=== PATIENT | male | born 1970 | race Caucasian/White ===

== ENCOUNTER 2019-08-07 05:28 | Emergency (ER) | payer SELFPAY ==
--- NOTE | ~2019-08-07 | CT_ITS ---
EXAMINATION: CT abdomen pelvis wo con DATE: 08/07/2019 05:53 INDICATION: Left flank pain, nausea and hematuria. History of kidney stones. TECHNIQUE: Computed tomography (CT) of the abdomen and pelvis was performed without intravenous contr ast. The dose-length product was 192.05 mGy-cm. Automated exposure control and iterative reconstructi on technique were employed. COMPARISON: None. FINDINGS: Lung bases are unremarkable. Heart size normal. No pleural effusion. Small pericardial effu girish. The liver, spleen, pancreas, adrenal glands and right kidney are unremarkable. There is a 4 mm left U PJ stone with mild hydronephrosis. Nonobstructive bowel gas pattern. No abnormal pelvic masses or flu id collections. No free air. No lymphadenopathy. No significant vascular abnormality. There is lumbar spondylosis at L5-S1. No acute osseous abnormality. IMPRESSION: 1. 4 mm left UPJ stone with mild hydronephrosis. 2: Small pericardial effusion. Reviewed, dictated and finalized at location B. ER/[facility]
[2019-08-07 05:32] VITALS: BP 105/65; PULSE 60; RESP 20; TEMP 36.9; O2SAT 100
--- NOTE | 2019-08-07 05:40 | ED.ABDPAIN ---
HPI - Abdominal Pain General Chief Complaint: Abdominal Pain <Ramy Haq - Last Filed: 08/07/19 05:41> Stated Complaint: kidney stone <Ramy Haq - Last Filed: 08/07/19 05:41> Time Seen by Provider: 08/07/19 05:38 <Ramy Haq - Last Filed: 08/07/19 05:41> Source: RN notes reviewed <Ramy Haq - Last Filed: 08/07/19 05:41> History of Present Illness HPI narrative: Patient presents emergency department from home for left flank pain. Patient states pain began last night approximately 2100. Pain is located left flank and does not radiate. Described as sharp and stabbing. Associated with nausea. Patient states he has a history of previous kidney stone with pain feeling similar to the past. States he did try taking Superior at home with minimal relief. Denies any fevers or chills chest pain shortness of breath or any other symptoms <Ramy Haq - Last Filed: 08/07/19 05:41> Related Data Allergies/Adverse Reactions: Allergies Allergy/AdvReac Type Severity Reaction Status Date / Time MID[place]OLAM HCL Allergy Mild ANXIETY Uncoded 08/07/19 05:59 <Ramy Haq - Last Filed: 08/07/19 05:41> Review of Systems Review of Systems: Narrative: CONSTITUTIONAL: Denies fever, chills, or sweats. EYES: Denies visual changes, redness, or discharge. ENT: Denies rhinorrhea, congestion, sore throat, or otalgia. CARDIOVASCULAR: Denies chest pain, palpitations, or edema. RESPIRATORY: Denies cough or dyspnea. GASTROINTESTINAL: Denies abdominal pain vomiting, or diarrhea., Reports left flank pain and nausea GENITOURINARY: Denies dysuria or hematuria. SKIN: Denies rash or itching. MUSCULOSKELETAL: Denies back pain, joint pain, or myalgia. NEUROLOGIC: Denies headache, numbness, or weakness. PSYCHIATRIC: Denies anxiety or depression. <Ramy Haq DO - Last Filed: 08/07/19 05:41> [facility] Past Medical History Medical History: Medical History (Updated 08/07/19 @ 07:13 by Marii Gonzalez MD) Kidney stone <Ramy Haq DO - Last Filed: 08/07/19 05:41> Social History Social History: Social History Smoking status: Never smoker Alcohol intake: current <Ramy Haq DO - Last Filed: 08/07/19 05:41> Exam Narrative: Exam Narrative: APPEARANCE: No acute distress, nontoxic, resting in bed EYES: EOMI HEENT: Normocephalic, atraumatic, OMM RESPIRATORY: No respiratory distress Clear to auscultation bilaterally with no rhonchi wheezing or rales. CARDIOVASCULAR: Regular rate and rhythm without murmurs rubs or gallops. ABDOMINAL: Soft, nontender, nondistended, no rebound or guarding left flank tender to palpation MUSCULOSKELETAl: Moves all extremities. No clubbing, cyanosis or edema. NEURO: Awake and alert. Following commands, speech normal, no focal deficits SKIN:: Warm, dry. No rashes lesions or abrasions PSYCHIATRIC: Normal affect/mood, <Ramy Haq DO - Last Filed: 08/07/19 05:41> Course Vital Signs Vital signs: Vital Signs Temperature 36.9 C 08/07/19 05:32 Pulse Rate 60 08/07/19 05:32 Respiratory Rate 20 08/07/19 05:32 Blood Pressure 105/65 08/07/19 05:32 Pulse Oximetry 100 08/07/19 05:32 Temperature 37.2 C 08/07/19 06:38 Pulse Rate 75 08/07/19 06:38 Respiratory Rate 19 08/07/19 06:38 Blood Pressure 109/67 08/07/19 06:38 Pulse Oximetry 100 08/07/19 06:38 <Ramy Haq DO - Last Filed: 08/07/19 05:41> Vital Signs Temperature 36.9 C 08/07/19 05:32 Pulse Rate 60 08/07/19 05:32 Respiratory Rate 20 08/07/19 05:32 Blood Pressure 105/65 08/07/19 05:32 Pulse Oximetry 100 08/07/19 05:32 Temperature 37.2 C 08/07/19 06:38 Pulse Rate 75 08/07/19 06:38 Respiratory Rate 19 08/07/19 06:38 Blood Pressure 109/67 08/07/19 06:38 Pulse Oximetry 100 08/07/19 06:38 <Marii Josue
[2019-08-07] MEDS: KETOROLAC 30 MG/ML VIAL (*BKC) IV PUSH (05:49)
[2019-08-07 05:54] LABS: Basophils Percent Auto 0.3 % (0.2-1.2); Eosinophils Percent Auto 0.1 % (0-4.4); Hemoglobin 15.3 g/dL (14.0-18.0); Immature Granulocyte Absolute 0.05 K/mm3 (0.00-0.031); Immature Granulocyte Percent A 0.4 % (0-0.5); Lymphocytes Percent Auto 9.9 % (18.3-44.2); Mean Corpuscular HGB Conc 33.3 g/dl (32-36); Mean Corpuscular Hemoglobin 32.9 pg (26-34); Mean Corpuscular Volume 98.9 fl (80-100); Mean Platelet Volume 10.3 fl (7.4-10.4); Monocytes Absolute Auto 0.6 K/mm3 (0.1-0.6); Monocytes Percent Auto 4.7 % (2.6-8.5); Neutrophils Absolute Auto 10.3 K/mm3 (1.3-6.7); Neutrophils Percent Auto 84.6 % (45.5-73.1); Platelet Count Result 267 k/mm3 (150-375); Red Blood Count 4.65 M/mm3 (4.6-6.20); Red Cell Distribution Width 12.6 % (11.5-14.5); White Blood Count 12.2 K/mm3 (4.5-10.0)
[2019-08-07] MEDS: LACTATED RINGERS 1,000 ML 999 ML IV CONT (05:58)
[2019-08-07 06:01] LABS: Add Urine Microscopic? YES; Appearance Urine Cloudy (Clear); Bacteria Urine Trace /hpf; Bilirubin Urine Negative (Negative); Blood Urine 3+ (Negative); Calcium Oxalate Crystals Urine Present /hpf; Color Urine Light Brown (Yellow); Glucose Urine UA Negative (Negative); Ketones Urine Negative (Negative); Leukocyte Esterase Ur Negative LEU/UL (Negative); Mucus Urine Moderate /lpf; Nitrate Urine Negative (Negative); Protein Urine 2+ mg/dL (Negative); RBC Urine >75 /hpf (0-2); Specific Grav Ur 1.019 (1.001-1.035); Squamous Epithelial Cell Urine Rare /hpf (Few); Urobilinogen Urine Negative mg/dL (<2.0); WBC Urine 0-3 /hpf
[2019-08-07 06:26] LABS: Alanine Aminotransferase 22 U/L (4-50); Albumin Level 4.3 g/dL (3.5-5.1); Alkaline Phosphatase 84 U/L (38-126); Aspartate Amino Transferase 22 U/L (17-59); Bilirubin,Total 0.7 mg/dL (0.2-1.3); Blood Urea Nitrogen 14 mg/dL (9-20); Calcium 9.1 mg/dL (8.4-10.2); Carbon Dioxide 29 mmol/L (22-30); Chloride 102 mmol/L (98-107); Estimated Glomerular Filt Rate > 60; Glucose 122 mg/dL (75-110); Potassium 4.4 mmol/L (3.4-5.0); Sodium 141 mmol/L (137-145)
[2019-08-07 06:38] VITALS: BP 109/67; PULSE 75; RESP 19; TEMP 37.2; O2SAT 100
[2019-08-07 07:27] VITALS: BP 116/63; PULSE 78; RESP 17; O2SAT 100
== END 2019-08-07 07:24 | disposition home or self-care (01) ==
PROVIDERS: Emergency Medicine; Emergency Provider Emergency Medicine; PCP Internal Medicine
DX: N13.2 Hydronephrosis with renal and ureteral calculous obstruction (principal)
CPT/HCPCS: 36415; 74176; 80053; 81001; 85025; 96361; 96374; 99284; J1885; J7120

== ENCOUNTER 2019-12-26 12:46 | Outpatient (CLI) | payer OTHER, SELFPAY ==
--- NOTE | 2019-12-26 | ECG_ITS ---
Measurements Intervals [place] Rate: 62 P: 74 DE: 166 QRS: 76 QRSD: 90 T: 56 QT: 374 QTc: 381 Interpretive Statements SINUS RHYTHM INCOMPLETE RIGHT BUNDLE BRANCH BLOCK BORDERLINE ECG Electronically Signed On 12-26-2019 13:32:18 CDT by Shaka Loomis D.O.
== END 2019-12-26 12:47 | disposition home or self-care (01) ==
PROVIDERS: PCP Internal Medicine
DX: Z01.818 Encounter for other preprocedural examination (principal)
CPT/HCPCS: 93005